=== PATIENT | female | born 1985 | race Caucasian/White ===

== ENCOUNTER 2017-07-30 10:17 | Emergency (ER) | payer MEDICAID ==
[~2017-07-30] VITALS: Ht 170.2 cm; Wt 72.0 kg
[2017-07-30] MEDS ORDERED: HALOPERIDOL LACTATE 5MG/ML VIAL IM STA (10:27)
[2017-07-30 10:37] VITALS: BP 124/79
== END 2017-07-30 11:26 | disposition left against medical advice (07) ==
LOC: ER 10:32
DX: F10.229 Alcohol dependence with intoxication, unspecified (principal); Y90.9 Presence of alcohol in blood, level not specified; F11.10 Opioid abuse, uncomplicated; F19.10 Other psychoactive substance abuse, uncomplicated; Z59.0 Homelessness
CPT/HCPCS: 99283; J1630

== ENCOUNTER 2017-08-12 14:29 | Emergency (ER) | payer MEDICAID ==
[~2017-08-12] VITALS: Ht 170.2 cm; Wt 64.0 kg
[2017-08-12] MEDS ORDERED: LEXAPRO (14:31)
[2017-08-12] MEDS ORDERED: SEROQUEL (14:31)
[2017-08-12] MEDS ORDERED: GABA-290 PO (14:31)
[2017-08-12] MEDS ORDERED: LORAZEPAM 2MG/ML CPJ IM ONE (17:15)
[2017-08-12] MEDS ORDERED: HALOPERIDOL 5MG TABLET PO ONE (18:15)
[2017-08-12 20:01] LABS: BASOPHILS % 0.4 % (0.0-2.0); EOSINOPHILS % 0.2 % (0.0-5.0); HEMOGLOBIN. 12.6 g/dL (12.0-16.0); LYMPHOCYTES % 22.6 % (20.0-50.0); MEAN CORPUSCULAR HEMOGLOBIN 29.5 pg (28.0-32.0); MEAN PLATELET VOLUME 8.6 fl (7.4-10.4); MONOCYTES % 7.4 % (2.0-8.0); NEUTROPHILS % 69.4 % (40.0-76.0); PLATELET 346 x1000/uL (130-400); RED BLOOD CELL COUNT 4.28 mill/uL (4.2-5.4); RED CELL DISTRIBUTION WIDTH 13.4 % (11.6-14.6)
[2017-08-12 20:09] LABS: CHLORIDE 107 mEq/L (98-107)
[2017-08-12 20:12] LABS: ETHANOL BLOOD < 10 mg/dL
[2017-08-12 21:14] LABS: CLARITY URINE TURBID (CLEAR); COLOR URINE YELLOW (YELLOW); KETONES URINE TRACE (NEGATIVE); LEUKOCYTE ESTERASE URINE NEGATIVE (NEGATIVE); NITRITE URINE NEGATIVE (NEGATIVE); OCCULT BLOOD URINE NEGATIVE (NEGATIVE); PROTEIN URINE NEGATIVE (NEGATIVE); SPECIFIC GRAVITY URINE 1.023 (1.005-1.030)
[2017-08-12 21:30] LABS: *BARBITURATES SCREEN URINE NEGATIVE (NEGATIVE)
[2017-08-12 21:31] LABS: *COCAINE SCREEN URINE NEGATIVE (NEGATIVE); METHADONE URINE SCREEN NEGATIVE (NEGATIVE); OPIATES URINE SCREEN NEGATIVE (NEGATIVE); PHENCYCLIDINE URINE SCREEN NEGATIVE (NEGATIVE)
[2017-08-12 21:33] LABS: *AMPHETAMINES SCREEN URINE PRESUMTIVE POSITIVE (NEGATIVE); *BENZODIAZEPINES SCREEN URINE PRESUMTIVE POSITIVE (NEGATIVE); CANNABINOID URINE SCREEN PRESUMTIVE POSITIVE (NEGATIVE)
[2017-08-13] MEDS ORDERED: HALOPERIDOL 5MG TABLET PO ONE (05:30)
[2017-08-13] MEDS ORDERED: LORAZEPAM 1MG TABLET PO ONE (05:30)
[2017-08-13 14:30] VITALS: BP 112/63
== END 2017-08-13 14:20 | disposition home or self-care (01) ==
LOC: ER 14:41
DX: R45.851 Suicidal ideations (principal); F15.10 Other stimulant abuse, uncomplicated; F12.10 Cannabis abuse, uncomplicated; F32.9 Major depressive disorder, single episode, unspecified; F14.10 Cocaine abuse, uncomplicated; F43.10 Post-traumatic stress disorder, unspecified; D72.829 Elevated white blood cell count, unspecified; Z88.8 Allergy status to other drugs, medicaments and biological substances; Z91.14 Patient's other noncompliance with medication regimen
CPT/HCPCS: 36415; 80048; 80305; 80307; 80329; 81003; 85025; 96372; 99284; G0482; J1630; J2060; J7030

== ENCOUNTER 2021-05-28 02:57 | Emergency (ER) | payer MEDICAID ==
[~2021-05-28] VITALS: Ht 160 cm; Wt 59.0 kg
[~2021-05-28 02:57] MED LIST: GABA-290 PO; LEXAPRO; SEROQUEL
[2021-05-28] MEDS ORDERED: HALOPERIDOL LACTATE 5MG/ML VIAL IM STA (03:21)
[2021-05-28] MEDS ORDERED: LORAZEPAM 2MG/ML CPJ IM ONE (03:45)
[2021-05-28 04:30] LABS: BASOPHILS % 0.6 % (0.0-2.0); EOSINOPHILS % 0.3 % (0.0-5.0); HEMATOCRIT. 39.4 % (36.0-48.0); HEMOGLOBIN. 13.4 g/dL (12.0-16.0); MEAN CORPUSCULAR HEMOGLOBIN 31.1 pg (28.0-32.0); MEAN CORPUSCULAR VOLUME 91.1 fL (81.0-99.0); MEAN PLATELET VOLUME 9.1 fl (7.4-10.4); NEUTROPHILS % 75.1 % (40.0-76.0); PLATELET 284 x1000/uL (130-400); RED BLOOD CELL COUNT 4.33 mill/uL (4.2-5.4); RED CELL DISTRIBUTION WIDTH 14.3 % (11.6-14.6)
[2021-05-28 04:45] LABS: CHLORIDE 109 mEq/L (98-107)
[2021-05-28 05:23] LABS: CLARITY URINE CLEAR (CLEAR); COLOR URINE DARK YELLOW (YELLOW); KETONES URINE TRACE (NEGATIVE); LEUKOCYTE ESTERASE URINE NEGATIVE (NEGATIVE); NITRITE URINE NEGATIVE (NEGATIVE); OCCULT BLOOD URINE NEGATIVE (NEGATIVE); PROTEIN URINE TRACE (NEGATIVE); SPECIFIC GRAVITY URINE 1.025 (1.005-1.030); UROBILINOGEN URINE 0.2 E.U./dL (0.2-1.0)
[2021-05-28 05:54] LABS: *BARBITURATES SCREEN URINE NEGATIVE (NEGATIVE); *BENZODIAZEPINES SCREEN URINE NEGATIVE (NEGATIVE); *COCAINE SCREEN URINE NEGATIVE (NEGATIVE)
[2021-05-28 05:55] LABS: METHADONE URINE SCREEN NEGATIVE (NEGATIVE); PHENCYCLIDINE URINE SCREEN NEGATIVE (NEGATIVE)
[2021-05-28] MEDS ORDERED: POTASSIUM CHLORIDE 20MEQ TABLET SR PO SCH ×2 (06:30→13:15)
[2021-05-28 06:43] LABS: *AMPHETAMINES SCREEN URINE PRESUMTIVE POSITIVE (NEGATIVE); CANNABINOID URINE SCREEN PRESUMTIVE POSITIVE (NEGATIVE); OPIATES URINE SCREEN PRESUMTIVE POSITIVE (NEGATIVE)
[2021-05-28 07:00] LABS: ETHANOL BLOOD < 10 mg/dL
[2021-05-28] MEDS ORDERED: RISPERIDONE 1MG TABLET PO SCH (09:00)
[2021-05-28 17:30] VITALS: BP 130/88
== END 2021-05-28 18:39 | disposition home or self-care (01) ==
LOC: ER 02:57
DX: F23 Brief psychotic disorder (principal); F14.10 Cocaine abuse, uncomplicated; F15.10 Other stimulant abuse, uncomplicated; Z88.8 Allergy status to other drugs, medicaments and biological substances; Z86.59 Personal history of other mental and behavioral disorders
CPT/HCPCS: 36415; 80053; 80305; 80307; 80320; 80329; 81003; 84443; 85025; 93005; 96372; 99285; J1630; J2060; G0480

== ENCOUNTER 2021-05-28 19:00 | Emergency (ER) | payer SELFPAY ==
[~2021-05-28] VITALS: Ht 167.6 cm; Wt 64.0 kg
[2021-05-28 22:17] LABS: BASOPHILS % 0.5 % (0.0-2.0); EOSINOPHILS % 1.6 % (0.0-5.0); HEMATOCRIT. 44.6 % (36.0-48.0); LYMPHOCYTES % 35.7 % (20.0-50.0); MEAN CORPUSCULAR HEMOGLOBIN 31.1 pg (28.0-32.0); MEAN CORPUSCULAR VOLUME 92.4 fL (81.0-99.0); MEAN PLATELET VOLUME 10.1 fl (7.4-10.4); MONOCYTES % 10.6 % (2.0-8.0); NEUTROPHILS % 51.6 % (40.0-76.0); PLATELET 358 x1000/uL (130-400); RED BLOOD CELL COUNT 4.83 mill/uL (4.2-5.4); RED CELL DISTRIBUTION WIDTH 14.4 % (11.6-14.6)
[2021-05-28 22:24] LABS: CHLORIDE 113 mEq/L (98-107)
[2021-05-28] MEDS ORDERED: POTASSIUM CHLORIDE 20MEQ TABLET SR PO ONE (22:45)
[2021-05-28] MEDS ORDERED: MAGNESIUM 1 G PREMIX 100 ML IV ONE (22:45)
[2021-05-28] MEDS ORDERED: KCL 10MEQ/50ML PREMIX 50 ML IV ONE (22:45)
[2021-05-29 00:46] LABS: *BARBITURATES SCREEN URINE NEGATIVE (NEGATIVE); *BENZODIAZEPINES SCREEN URINE NEGATIVE (NEGATIVE); *COCAINE SCREEN URINE NEGATIVE (NEGATIVE)
[2021-05-29 00:47] LABS: METHADONE URINE SCREEN NEGATIVE (NEGATIVE); PHENCYCLIDINE URINE SCREEN NEGATIVE (NEGATIVE)
[2021-05-29 00:50] LABS: *AMPHETAMINES SCREEN URINE PRESUMTIVE POSITIVE (NEGATIVE)
[2021-05-29 00:51] LABS: CANNABINOID URINE SCREEN PRESUMTIVE POSITIVE (NEGATIVE); OPIATES URINE SCREEN PRESUMTIVE POSITIVE (NEGATIVE)
[2021-05-29] MEDS ORDERED: POTASSIUM CHLORIDE 20MEQ TABLET SR PO ONE (03:30)
[2021-05-29 06:00] VITALS: BP 115/77
== END 2021-05-29 07:02 | disposition home or self-care (01) ==
LOC: ER 19:00
DX: R41.82 Altered mental status, unspecified (principal); E87.6 Hypokalemia; F19.20 Other psychoactive substance dependence, uncomplicated; R56.9 Unspecified convulsions; Z88.8 Allergy status to other drugs, medicaments and biological substances
CPT/HCPCS: 36415; 80053; 80305; 82962; 85025; 93005; 96365; 96366; 99285; J3475; J3480